=== PATIENT | female | born 2000 | race Caucasian/White ===

== ENCOUNTER → 2021-06-22 | Emergency (ER) | payer MEDICAID ==
[~2021-06-22] VITALS: Ht 160 cm; Wt 81.7 kg
[~2021-06-22] MED LIST: AZITHROMYCIN500 MG PO; CLARITIN10 MG PO; IBUPROFEN 800800 M1 PO; SERTRALINE HCL50 MG PO
[2021-06-22 22:48] VITALS: BP 131/86
== END ==
LOC: M.ERS 22:38
DX: S60.222A Contusion of left hand, initial encounter (principal); S90.32XA Contusion of left foot, initial encounter; Z91.048 Other nonmedicinal substance allergy status; Z88.6 Allergy status to analgesic agent; Z91.013 Allergy to seafood; Z88.8 Allergy status to other drugs, medicaments and biological substances; W10.8XXA Fall (on) (from) other stairs and steps, initial encounter; W23.0XXA Caught, crushed, jammed, or pinched between moving objects, initial encounter; Y93.89 Activity, other specified; Y92.89 Other specified places as the place of occurrence of the external cause; Y99.8 Other external cause status